=== PATIENT | female | born 1965 | race Caucasian/White ===

== ENCOUNTER 2017-07-01 14:57 | Emergency (ER) | payer SELFPAY ==
[~2017-07-01] VITALS: Ht 157.5 cm; Wt 65.3 kg
[~2017-07-01 14:57] MED LIST: UNOBMED
[2017-07-01] MEDS ORDERED: NKM (15:07)
[2017-07-01] MEDS ORDERED: Tylenol #3 tab (300mg/30mg) PO ONE (15:15)
[2017-07-01] MEDS ORDERED: NORCO 5-325 TA1 EACH ORAL (16:21)
[2017-07-01] MEDS ORDERED: IBUPROFEN600 MG ORAL (16:21)
[2017-07-01 16:26] VITALS: BP 132/76
[2017-07-01 16:27] VITALS: BP 131/78
--- NOTE | 2017-07-01 17:26 | Emergency Room Report ---
History of Present Illness General Chief Complaint: Multiple Trauma/Fall Source: Patient Present Illness HPI 52-year-old female presents ED for evaluation. Daughter at bedside states that patient was cleaning the bathroom today and slipped and fell in the shower tub and hit her left side her ribs on the shower [place]. Denies hitting her head or LOC presents with pain to her left lower ribs. 10 out of 10, sharp, nonradiating. Worse with deep breaths and movement. Denies any other injuries. No other aggravating or relieving factors. Denies any other associated symptoms Allergies: Coded Allergies: No Known Allergies (Unverified , 11/29/15) Patient History Past Medical History: DM Pertinent Family History: none Social History: Denies: smoking, alcohol use, drug use Now: No Immunizations: UTD Reviewed Nursing Documentation: PMH: Agreed, PSxH: Agreed Nursing Documentation-PMH Past Medical History: No History, Except For Hx Diabetes: Yes - PRE DM Hx Gastrointestinal Problems: Yes - hysyorectomy Review of Systems All Other Systems: negative except mentioned in HPI Physical Exam Vital Signs Date Time Temp Pulse Resp B/P (MAP) Pulse Ox O2 Delivery O2 Flow Rate FiO2 07/01/17 15:03 97.9 72 17 131/78 97 Room Air Sp02 EP Interpretation: reviewed, normal General Appearance: alert, GCS 15, non-toxic, mild distress Head: normocephalic Eyes: bilateral eye normal inspection, bilateral eye PERRL ENT: normal ENT inspection Neck: normal inspection Respiratory: lungs clear, normal breath sounds, speaking full sentences, other - L lateral rib pain Cardiovascular #1: regular rate, rhythm, no edema Gastrointestinal: normal inspection Rectal: deferred Genitourinary: no CVA tenderness Musculoskeletal: normal inspection Neurologic: alert, oriented x3, responsive, motor strength/tone normal, sensory intact, speech normal Psychiatric: normal inspection Skin: normal inspection Lymphatic: normal inspection Medical Decision Making Diagnostic Impression: Primary Impression: Rib fracture Qualified Codes: S22.42XA - Multiple fractures of ribs, left side, initial encounter for closed fracture ER Course Hospital Course 52-year-old F presents to ED complaining of L rib pain s/p fall Differential diagnoses include: Fracture, dislocation, sprain, contusion Clinical course Patient placed on stretcher. After initial history and physical, I ordered pain medications and Xrays of L rib series Xrays shows no PTX, 1+ rib fx in lower ribs on reassessment pain is improved Diagnosis - rib fx Stable and discharged to home with prescription for Motrin, [place]. weight bear as tolerated. Followup with PMD. Return to ED if symptoms recur or worsen Other X-Ray Diagnostic Results Other X-Ray Diagnostic Results : X-Ray ordered: L rib series # of Views/Limited Vs Complete: 3 View Indication: Pain EP Interpretation: Yes Interpretation: no dislocation, no soft tissue swelling, other - L lower rib fx Impression: Other - rib fx Electronically Signed by: Electronically signed by Rudy Higgins MD Last Vital Signs Date Time Temp Pulse Resp B/P (MAP) Pulse Ox O2 Delivery O2 Flow Rate FiO2 07/01/17 16:29 97.9 07/01/17 16:27 76 18 131/78 97 Room Air Status: improved Disposition: HOME, SELF-CARE Condition: Stable Scripts Hydrocodone Bit/Acetaminophen 5-325* (NORCO 5-325*) 1 Each Tablet 1 TAB ORAL Q6H Y for For Pain, #10 TAB 0 Refills Prov: RUDY HIGGINS M.D. 07/01/17 Ibuprofen* (MOTRIN*) 600 Mg Tablet 600 MG ORAL Q8H Y for For Pain, #30 TAB 0 Refills Prov: RUDY HIGGINS M.D. 07/01/17 Patient Instructions: Rib Fracture, [id number] RUDY HIGGINS M.D. Jul 01, 2017 17:26
--- NOTE | 2017-07-02 09:25 | Diagnostic Imaging Report ---
Indication: Pain status post injury Technique: XRAY Ribs 2v Uni L Comparison: None Findings: There is an acute fracture of the left 10th lateral rib. There is no significant displacement. No pneumothorax. Imaged portions of the lung are clear. Impression: Acute fracture of the lateral 10th rib. No pneumothorax. Lungs clear. This corresponds with the interpretation of the treating ER clinician, as documented in the electronic medical record.
== END 2017-07-01 18:41 | disposition home or self-care (01) ==
LOC: EMR 15:11
DX: S22.42XA Multiple fractures of ribs, left side, initial encounter for closed fracture (principal); R73.03 Prediabetes; Z90.710 Acquired absence of both cervix and uterus; W18.2XXA Fall in (into) shower or empty bathtub, initial encounter; Y93.9 Activity, unspecified; Y92.002 Bathroom of unspecified non-institutional (private) residence as the place of occurrence of the external cause
CPT/HCPCS: 99284

== ENCOUNTER 2019-02-24 18:24 | Emergency (ER) | payer MEDICAID ==
[~2019-02-24] VITALS: Ht 162.6 cm; Wt 63.5 kg
[~2019-02-24 18:24] MED LIST changes: +IBUPROFEN600 MG ORAL; +NKM; +NORCO 5-325 TA1 EACH ORAL
[2019-02-24 19:00] VITALS: BP 136/69
--- NOTE | 2019-02-24 19:00 | NUR ---
ED Nurse Note: c/o flu-like symptoms (cough, fever and headache) x 2 days
--- NOTE | 2019-02-24 19:03 | Emergency Room Report ---
History of Present Illness General Chief Complaint: Flu Like Symptoms Source: Patient Present Illness HPI 54-year-old female presents to the emergency department complaining of 8 out of 10 severity progressive headache, cough, sore throat and body aches x2 days. Patient also reports fevers and chills. Patient denies neck pain/stiffness. She denies photophobia or visual changes. Patient denies history of migraines. Patient denies recent head injury. Patient denies nausea, vomiting or abdominal symptoms such as tenderness, constipation or diarrhea. Patient denies having any significant past medical history she has not taken any medications for her symptoms other than Zyrtec. Patient reports history of environmental allergies she also reports she has been having increased runny nose. Denies CP, Palpitations, LOC, AMS, dizziness, Changes in Vision, Sensation, paresthesias, or a sudden severe headache. Denies dysuria, hematuria or urinary frequency. Denies hx of smoking or asthma/COPD. Pt. states she received her flu vaccination last week. Allergies: Coded Allergies: No Known Allergies (Unverified , 11/29/15) Patient History Past Medical History: see triage record Past Surgical History: none Pertinent Family History: none Last Menstrual Period: 8 years ago Now: No Reviewed Nursing Documentation: PMH: Agreed; PSxH: Agreed Nursing Documentation-PMH Past Medical History: No Stated History Hx Diabetes: Yes - PRE DM Hx Gastrointestinal Problems: Yes - hysyorectomy Review of Systems All Other Systems: negative except mentioned in HPI Physical Exam Vital Signs Date Time Temp Pulse Resp B/P (MAP) Pulse Ox O2 Delivery O2 Flow Rate FiO2 02/24/19 18:47 100.0 96 18 136/69 (91) 95 Room Air Sp02 EP Interpretation: reviewed, normal General Appearance: no apparent distress, alert, GCS 15, non-toxic Head: normocephalic, atraumatic Eyes: bilateral eye normal inspection, bilateral eye PERRL, bilateral eye other - no photophobia ENT: hearing grossly normal, normal voice, TMs + canals normal, uvula midline, moist mucus membranes, nasal congestion, pharyngeal erythema, other - no exudates Neck: full range of motion, no meningismus Respiratory: chest non-tender, lungs clear, normal breath sounds, no respiratory distress, no wheezing, speaking full sentences Cardiovascular #1: regular rate, rhythm, no edema Gastrointestinal: non tender, soft Genitourinary: normal inspection, no CVA tenderness Musculoskeletal: gait/station normal, normal range of motion, non-tender Neurologic: alert, oriented x3, responsive, motor strength/tone normal, sensory intact, speech normal, grossly normal Psychiatric: judgement/insight normal Skin: no rash Lymphatic: no adenopathy Medical Decision Making PA Attestation Dr. Wilson is my supervising Physician whom patient management has been discussed with. Diagnostic Impression: Primary Impression: Urinary tract infection Qualified Codes: N30.01 - Acute cystitis with hematuria Additional Impressions: Cough Fever and chills ER Course 54-year-old female presents to the emergency department complaining of 8 out of 10 severity progressive headache, cough, sore throat and body aches x2 days. Patient also reports fevers and chills. Patient denies neck pain/stiffness. She denies photophobia or visual changes. Patient denies history of migraines. Patient denies recent head injury. Patient denies nausea, vomiting or abdominal symptoms such as tenderness, constipation or diarrhea. Patient denies having any significant past medical history she has not taken any medications for her symptoms other than Zyrtec. Patient reports history of environmental allergies she also reports she has been having increased runny nose. Denies CP, Palpitations, LOC, AMS, dizziness, Changes in Vision, Sensation, paresthesias, or a sudden severe headache. Denies dysuria, hematuria or urinary frequency. Denies hx of smoking or asthma/COPD. Pt. states she received her flu vaccination last week. Ddx considered but are not limited to URI, pneumonia, PE, strep pharyngitis, meningitis, UTI just to name a few. Vital signs: Pt. is afebrile, the remaining VS are WNL H&PE are most consistent with URI- no meningeal signs, oropharynx is not involved, no evidence of streptococcal throat infection at this time. Pt. does not meet [facility] Criteria. ORDERS: -UA: Nitrite positive and presence of many bacteria- C/W UTI ED INTERVENTIONS: -Tylenol PO -I do not identify an emergent condition at this time. With current presentation , pt. is stable for close outpatient follow up and conservative treatment. D/ w pt. to return promptly to ED with worsening or new symptoms.- Pt. verbalizes' understanding and agreement with proposed treatment plan. DISCHARGE: At this time pt. is stable for d/c to home. Will provide printed patient care instructions, and any necessary prescriptions. Care plan and follow up instructions have been discussed with the patient prior to discharge. Labs Test 02/24/19 19:19 Urine Color Pale yellow Urine Appearance Clear Urine pH 5 (4.5-8.0) Urine Specific Thomson 1.020 (1.005-1.035) Urine Protein Negative (NEGATIVE) Urine Glucose (UA) Negative (NEGATIVE) Urine Ketones Negative (NEGATIVE) Urine Blood 1+ (NEGATIVE) Urine Nitrite Positive (NEGATIVE) Urine Bilirubin Negative (NEGATIVE) Urine Urobilinogen Normal MG/DL (0.0-1.0) Urine Leukocyte Esterase 2+ (NEGATIVE) Urine RBC 2-4 /HPF (0 - 2) Urine WBC 5-10 /HPF (0 - 2) Urine Squamous Epithelial Cells Few /LPF (NONE/OCC) Urine Bacteria Many /HPF (NONE) Last Vital Signs Date Time Temp Pulse Resp B/P (MAP) Pulse Ox O2 Delivery O2 Flow Rate FiO2 02/24/19 18:47 100.0 96 18 136/69 (91) 95 Room Air Status: improved Disposition: HOME, SELF-CARE Condition: Stable Scripts Trimethoprim/Sulfamethoxazole 160/800* (BACTRIM DS TABLET*) 1 Each Tablet 1 TAB ORAL TWICE A DAY for 5 Days, #10 TAB Prov: Abigail Ortiz 02/24/19 Codeine/Promethazine Hcl* (PROMETHAZINE-CODEINE SYRUP*) 118 Ml Syrup 5 ML ORAL Q6H PRN for For Cough, #120 ML 0 Refills Prov: Abigail Ortiz 02/24/19 Acetaminophen* (TYLENOL EXTRA STRENGTH*) 500 Mg Tablet 500 MG ORAL Q6H PRN for Mild Pain/Temp > 100.5, #20 TAB 0 Refills Prov: Abigail Ortiz 02/24/19 Patient Instructions: Upper Respiratory Infection, Adult, [id number], Urinary Tract Infection, [id number] Additional Instructions: Take medications as directed. Follow up with a Primary Care Provider in 3-5 days, even if your symptoms have resolved. --Please review list of primary care clinics, if you do not already have a primary care provider Return sooner to ED if new symptoms occur, or current symptoms become worse. Do not drink alcohol, drive, or operate heavy machinery while taking Cough Syrup as this may cause drowsiness. - Please note that this Emergency Department Report was dictated using [employer] administrator technology software, occasionally this can lead to erroneous entry secondary to interpretation by the dictation equipment. Abigail Ortiz Feb 24, 2019 19:03
[2019-02-24 19:35] LABS: APPEARANCE,URINE CLEAR; BILIRUBIN, URINE NEGATIVE (NEGATIVE); COLOR,URINE PALE YELLOW; GLUCOSE, URINE (UA) NEGATIVE (NEGATIVE); KETONES,URINE NEGATIVE (NEGATIVE); LEUKOCYTE ESTERASE ,URINE 2+ (NEGATIVE); NITRITE,URINE POSITIVE (NEGATIVE); PH,URINE 5 (4.5-8.0); PROTEIN,URINE NEGATIVE (NEGATIVE); UROBILINOGEN,URINE NORMAL MG/DL (0.0-1.0)
[2019-02-24] MEDS ORDERED: BACTRIM DS TAB1 EAC1 ORAL (20:02)
[2019-02-24] MEDS ORDERED: PROMETHAZINE-C118 M1 ORAL (20:02)
[2019-02-24] MEDS ORDERED: TYLENOL EXTRA500 MG ORAL (20:02)
[2019-02-24 20:26] VITALS: BP 125/74
--- NOTE | 2019-02-24 20:27 | NUR ---
LAURYN MEDICATED WITH TYLENOL ORDERED AND DISCHARGED HOME SHORTLEY THEREAFTER.
== END 2019-02-24 20:25 | disposition home or self-care (01) ==
LOC: EMR 19:27
DX: N30.01 Acute cystitis with hematuria (principal); R05 Cough; R50.9 Fever, unspecified; Z90.710 Acquired absence of both cervix and uterus; R73.03 Prediabetes
CPT/HCPCS: 81003; 87086; Z7502; 99283